=== PATIENT | female | born 1965 | race Caucasian/White ===

== ENCOUNTER 2024-02-22 09:31 | Outpatient (AMB) | payer OTHER, SELFPAY ==
--- NOTE | 2024-02-22 09:35 | MHC.PC.OV ---
Vital Signs 02/22/24 09:51 Height 4 ft 10 in BP 140/80 H Blood Pressure Location Rt brachial Position Sitting Respiration 12 Pulse 77 Pulse Source Pulse Oximeter Pulse Oximetry (%) 99 Oxygen Delivery Method Room Air Intake Visit Reasons: [employer] Annual PE Req. Intake Note: Patient is here for her physical. Patient is concerned about her elevated blood pressure. Cruise Guide Required: No Accompanied by: Self / Same As Patient Allergies codeine Allergy (Severe, Verified 02/22/24 09:54) unknown- childhood reaction Penicillins Allergy (Severe, Verified 02/22/24 09:54) unknown- childhood reaction Tobacco use date assessed: 02/22/24 Dental Screening Dental Screen Date: 02/22/24 Did you have a dental visit in the last 12 months?: Yes Did you have a dental problem in the last 6 months where you did not have access to dental care?: No Was dental information given to patient?: Patient has dentist HPI HPI Comments History of Present Illness Details The patient is a 58-year-old female with a past medical history of abnormal TFTs, hyperlipidemia, eczema presenting for follow-up/physical exam Nail fungus: Topical treatments were ineffective. She had some improvement with oral terbinafine. This helped clear up her eczema on the face and body as wekk, Prediabetes: Due for A1C.At last check had gotten her A1C down to 6.1% OBGYN: Follows with Dr. Portillo Colonoscopy 07/03/2019-due ROS CONSTITUTIONAL: Denies weight loss, fever and chills. HEENT: Denies changes in vision and hearing. RESPIRATORY: Denies SOB and cough. CV: Denies palpitations and CP GI: Denies abdominal pain, nausea, vomiting and diarrhea. : Denies dysuria and urinary frequency. MSK: Denies new myalgia and joint pain. SKIN: see HPI NEUROLOGICAL: Denies headache PSYCHIATRIC: Denies recent changes in mood. PHYSICAL EXAM: GENERAL: Alert and oriented x 3. NAD EYES: EOMI. Anicteric. HENT: Moist mucous membranes. No scleral icterus. No cervical lymphadenopathy. LUNGS: Clear to auscultation bilaterally. CARDIOVASCULAR: Regular rate and rhythm. No murmur. No JVD. ABDOMEN: Soft, non-tender +bs EXTREMITIES: No edema. Non-tender. SKIN: No rashes or lesions. Warm. NEUROLOGIC: No focal neurological deficits. CN II-XII grossly intact PSYCHIATRIC: Cooperative. Appropriate mood and affect [facility] Medical History History of mammogram Hx of foreign travel Tubular adenoma of colon Sinusitis Prediabetes Onychomycosis Hypercholesterolemia Exercise-induced asthma Eczema Abnormal thyroid blood test Surgical History History of colonoscopy Family History Mother Diabetes Asthma Cardiovascular disease Thyroid disorder Father Diabetes Gastric cancer Social History Household Members: Spouse Household Members Other:: : [place] Housing: House 75 years or older and lives alone: No Alcohol intake: current Alcohol intake frequency: a few times a month Alcohol type: wine Patient Tobacco Use Status: Never used Tobacco e-Cigarette/Vaping Use: Never Used Use of substances other than those prescribed or required for medical reasons: No Have you been hit, kicked, punched, or otherwise hurt by someone within the past year? 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 1. Little interest or pleasure in doing things: not at all 2. Feeling down, depressed, or hopeless: not at all 3. Trouble falling or staying asleep, or sleeping too much: not at all 4. Feeling tired or having little energy: not at all 5. Poor appetite or overeating: not at all 6. Feeling bad about yourself - or that you are a failure or have let yourself or your family down: not at all 7. Trouble concentrating on things, such as reading the newspaper or watching television: not at all 8. Moving or speaking so slowly that other people could have noticed. Or the opposite - being so fidgety or restless that you have been moving around a lot more than usual: not at all 9. Thoughts that you would be better off or of hurting yourself in some way: not at all Total score: 0 Depression Screening Interpretation: Negative Depression Screening Done: Yes 94066 - PHQ-9 Billing: Yes Source: Developed by Drs. Earl Rai, Barbara Mares, Clifford Bro and colleagues, with an educational israel from [employer] Thrive Questionnaire Date Thrive assessed: 02/22/24 I am a: Patient What is your living situation today?: I have a steady place to live Within the past 12 months, did the food you bought not last and you didn't have the money to get more?: Never true Within the past 12 months, did you worry whether your food would run out before you got money to buy more?: Never true Do you have trouble paying for medicines?: No Do you have trouble getting transportation to medical appointments?: No Do you have trouble paying your heating and electricity bill?: No Do you have trouble taking care of your child, family member or friend?: No Do you have trouble with day-to-day activities such as bathing, preparing meals, shopping, managing finances, etc.?: No Are you currently unemployed and looking for a job?: No Are you interested in more education?: No Please select the resources that you would like help with: None Currently or been in a relationship where the following occur: No concerns reported THRIVE Score: 0 AUDIT C Alcohol Use Questionnaire (AUDIT-C) 1. How often do you have a drink containing alcohol?: 2-4 times a month 2. How many drinks containing alcohol do you have on a typical day when you are drinking?: 1 or 2 3. How often do you have six or more drinks on one occasion?: Never Total Score: 2 ARAVIND-7 AMB Questionnaire ARAVIND-7 Date ARAVIND - 7 assessed: 02/22/24 Feeling nervous, anxious, or on edge: 1 = Several days Not being able to stop or control worryin = Not at all Worrying too much about different things: 0 = Not at all Trouble relaxin = Not at all Being so restless that it is hard to sit still: 0 = Not at all Becoming easily annoyed or irritable: 0 = Not at all Feeling afraid as if something awful might happen: 0 = Not at all Total ARAVIND-7 score (0-4 normal; 5-9 mild; 10-14 moderate; 15-21 severe): 1 Source: Developed by Drs. Earl Rai, Barbara Mares, Clifford Bro and colleagues, with an educational israel from [employer] ARAVIND-7 Assessment Billing ARAVIND-7 Assessment Tool: ARAVIND-7 Assessment 07899 Physical exam (Primary Care) Vital Signs: Last Vital Signs Pulse 77 02/22/24 09:51 Resp 12 02/22/24 09:51 BP 140/80 H 02/22/24 09:51 Pulse Ox 99 02/22/24 09:51 Oxygen Delivery Method Room Air 02/22/24 09:51 Tobacco/Smoking Status: Tobacco use Status Tobacco use date assessed 02/22/24 02/22/24 09:56 Patient Tobacco Use Status Never used Tobacco 02/22/24 09:56 e-Cigarette/Vaping Use Never Used 02/22/24 09:56 PHQ-9: PHQ-9 Score PHQ-9: Total score 0 02/24/24 19:49 Depression Screening Interpretation: Negative Thrive Assessment: Date of Thrive Assessment Date Thrive assessed 02/22/24 02/22/24 09:59 Currently or been in a relationship where the following occur: No concerns reported Assessment and Plan Assessment & Plan (1) Encounter for physical examination: Code(s): Z00.00 - Encounter for general adult medical examination without abnormal findings Plan: Prevnetive measures for age discussed Referral for colonoscopy Referred to dermatology (2) Abnormal thyroid blood test: Code(s): R79.89 - Other specified abnormal findings of blood chemistry Plan: check labs (3) Hypercholesterolemia: Code(s): E78.00 - Pure hypercholesterolemia, unspecified (4) Prediabetes: Code(s): R73.03 - Prediabetes Plan: Check labs. Low carb diet. (5) Atypical nevi: Code(s): D22.9 - Melanocytic nevi, unspecified Orders: Orders Complete Blood Count Auto Diff 02/22/24 E78.00 - Pure hypercholesterolemia, unspecified, R73.03 - Prediabetes, R79.89 - Other specified abnormal findings of blood chemistry, Z00.00 - Encounter for general adult medical examination without abnormal findings Lipid Panel 02/22/24 E78.00 - Pure hypercholesterolemia, unspecified, R73.03 - Prediabetes, R79.89 - Other specified abnormal findings of blood chemistry, Z00.00 - Encounter for general adult medical examination without abnormal findings Comprehensive Met. Panel 02/22/24 E78.00 - Pure hypercholesterolemia, unspecified, R73.03 - Prediabetes, R79.89 - Other specified abnormal findings of blood chemistry, Z00.00 - Encounter for general adult medical examination without abnormal findings TSH reflex Free T4 02/22/24 E78.00 - Pure hypercholesterolemia, unspecified, R73.03 - Prediabetes, R79.89 - Other specified abnormal findings of blood chemistry, Z00.00 - Encounter for general adult medical examination without abnormal findings Hemoglobin A1c 02/22/24 E78.00 - Pure hypercholesterolemia, unspecified, R73.03 - Prediabetes, R79.89 - Other specified abnormal findings of blood chemistry, Z00.00 - Encounter for general adult medical examination without abnormal findings Referrals Dermatology Referral D22.9 - Melanocytic nevi, unspecified Gastroenterology Referral K63.5 - Polyp of colon Medications: New terbinafine HCl 250 mg PO DAILY 28 tabs 0RF 4 weeks Coding Level of Care Code Est Pt Prev Care 40-64y(77466) Diagnoses Encounter for physical examination Z00.00 Abnormal thyroid blood test R79.89 Hypercholesterolemia E78.00 Prediabetes R73.03 Atypical nevi D22.9 Additional Codes ARAVIND-7 Assessment Billing - ARAVIND-7 Assessment Tool: ARAVIND-7 Assessment [id number] ([id number])
[2024-02-22 09:51] VITALS: BP 140/80; PULSE 77; RESP 12; O2SAT 99
== END 2024-02-22 11:29 | disposition home or self-care (01) ==
PROVIDERS: PCP Internal Medicine; Visit Provider Internal Medicine
DX: Z00.00 Encounter for general adult medical examination without abnormal findings (principal); R79.89 Other specified abnormal findings of blood chemistry; E78.00 Pure hypercholesterolemia, unspecified; R73.03 Prediabetes; D22.9 Melanocytic nevi, unspecified
CPT/HCPCS: 99396

== ENCOUNTER → 2024-05-02 15:37 | Outpatient (AMB) | payer OTHER, SELFPAY ==
[2024-05-02 12:43] VITALS: BMI 32.4
--- NOTE | 2024-05-05 11:49 | MHC.PC.OV ---
Vital Signs 05/02/24 12:43 Height 4 ft 10 in Weight 155 lb BMI 32.4 Intake Visit Reasons: review labs Allergies codeine Allergy (Severe, Verified 02/22/24 09:54) unknown- childhood reaction Penicillins Allergy (Severe, Verified 02/22/24 09:54) unknown- childhood reaction Tobacco use date assessed: 02/22/24 Dental Screening Dental Screen Date: 02/22/24 HPI HPI Comments History of Present Illness Details The patient is a 58-year-old female with a past medical history of abnormal TFTs, hyperlipidemia, eczema presenting for follow-up Labs she had at [facility] were scanned into the system. We reviewed these today with attention to hyperlipidemia and prediabetes with an A1C of 6.4%. Talked about starting statin versus pursuing some weight loss first. Nail fungus: Topical treatments were ineffective. She had some improvement with oral terbinafine. This helped clear up her eczema on the face and body as well. Prediabetes: 6.4% from 6.1% OBGYN: Follows with Dr. Portillo Colonoscopy 07/03/2019-due ROS see HPI PHYSICAL EXAM: Telehealth [facility] Medical History History of mammogram Hx of foreign travel Tubular adenoma of colon Sinusitis Prediabetes Onychomycosis Hypercholesterolemia Exercise-induced asthma Eczema Abnormal thyroid blood test Surgical History History of colonoscopy Family History Mother Diabetes Asthma Cardiovascular disease Thyroid disorder Father Diabetes Gastric cancer Social History Household Members: Spouse Household Members Other:: : [place] Housing: House 75 years or older and lives alone: No Alcohol intake: current Alcohol intake frequency: a few times a month Alcohol type: wine Patient Tobacco Use Status: Never used Tobacco e-Cigarette/Vaping Use: Never Used service: No Current occupational status: employed 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 How many drinks containing alcohol do you have on a typical day when you are drinking?: 1 or 2 3. How often do you have six or more drinks on one occasion?: Never Total Score: 0 ARAVIND-7 AMB Questionnaire ARAVIND-7 Date ARAVIND - 7 assessed: 02/22/24 Source: Developed by Drs. Earl Rai, Barbara Mares, Clifford Bro and colleagues, with an educational [employer]arel from [employer]. Physical exam (Primary Care) Tobacco/Smoking Status: Tobacco use Status Tobacco use date assessed 02/22/24 05/05/24 11:49 Patient Tobacco Use Status Never used Tobacco 05/05/24 11:49 e-Cigarette/Vaping Use Never Used 05/05/24 11:49 Thrive Assessment: Date of Thrive Assessment Date Thrive assessed 02/22/24 05/05/24 11:49 Telehealth Telehealth Telehealth Platform: [employer] Mobile Location of provider rendering services: practice address Location of patient: address on file Patient Identification confirmed using: Name, : Yes Telehealth method: voice only Patient verbally consented to treatment: Yes Patient verbally consented to billing insurance company: Yes Patient informed of any privacy concerns related to visit: Yes Minutes spent on Phone/Video with Pt.: 25 Coding Level of Care Code Tele Est Pt Level 3 (35394) Diagnoses Prediabetes R73.03 Assessment & Plan Assessment & Plan (1) Prediabetes: Code(s): R73.03 - Prediabetes Category: Medical Plan: Prediabetes with hyperlipidemia and obesity. Will pursue wegovy for insulin resistance, weight loss. If this is approved we will hold off on statin for now. BMI is currently 32.4 patient reported weight on home scale today Medications: New Wegovy (semaglutide (weight loss)) administer weeks 1 through 4 of therapy 0.25 mg (0.5 mL) subcut Q7D 2 mL 0RF NS
== END ==
LOC: HO.HMCFM 15:37
PROVIDERS: PCP Internal Medicine; Visit Provider Internal Medicine
DX: R73.03 Prediabetes (principal)

== ENCOUNTER → 2024-05-02 15:37 | Outpatient (BNVA) | payer OTHER, SELFPAY | PROVIDERS: PCP Internal Medicine; Visit Provider Internal Medicine ==